=== PATIENT | female | born 1935 | race Two or more races ===

== ENCOUNTER 2018-12-26 10:06 | Day surgery (SDC) | payer MEDICARE, MEDICAID ==
[2018-12-25 09:41] LABS: Basophils # (auto) 0.1 uL; Eosinophils # (auto) 0.2 uL; Eosinophils % (auto) 3.1 % (0.0-7.0); Hematocrit 37.6 % (36.0-46.0); Hemoglobin 12.6 g/dL (12.2-16.2); Lymphocytes # (auto) 1.8 uL; Lymphocytes % (auto) 30.9 % (10.0-50.0); Mean Corpuscular Hemoglobin 32.2 pg (28.0-32.0); Mean Corpuscular Hgb Conc. 33.6 g/dL (32.0-36.0); Mean Corpuscular Volume 95.7 fL (80.0-100.0); Monocytes # (auto) 0.5 uL; Monocytes % (auto) 9.1 % (0.0-12.0); Neutrophils # (auto) 3.3 uL; Neutrophils % (auto) 55.9 % (37.0-80.0); Platelet Count (auto) 250 10^3/uL (140-450); Red Blood Cells 3.93 10^6/uL (4.0-5.20); Red Cell Distribution Width 14.3 % (11.8-14.3); White Blood Cell 5.8 10^3/uL (4.4-10.8)
[2018-12-25 09:43] LABS: Urine Bacteria NONE SEEN /hpf (None Seen); Urine Blood Negative /uL (Negative); Urine Specific Gravity 1.022 (1.001-1.035); Urine WBC 3 /hpf (0 - 5)
[2018-12-25 09:58] LABS: INR 0.94 (0.9-1.15); Partial Thromboplastin Time 25.6 sec (23.64-32.05)
[2018-12-25 10:05] LABS: Potassium 4.1 mmol/L (3.5-5.1)
[2018-12-25 10:13] LABS: Albumin 3.8 g/dL (3.4-5.0); BUN/Creatinine Ratio 37.1; Bilirubin, Total 0.4 mg/dL (0.2-1.0); Calcium 8.5 mg/dL (8.5-10.1); Total Protein 7.7 g/dL (6.4-8.2)
[~2018-12-26] VITALS: Ht 147.3 cm; Wt 58.1 kg
[~2018-12-26 10:06] MED LIST: AML5T PO; LEV50T PO; MAGN400C3 PO
[2018-12-26] MEDS ORDERED: ceFAZolin 1GM/50ML 50 ML IV ONE (11:44)
[2018-12-26] MEDS ORDERED: SODIUM CHLORIDE LOCK 10 ML ONE (12:29)
[2018-12-26] MEDS ORDERED: MIDAZOLAM HCL 1MG/1ML-2 ML VIAL ONE (12:29)
[2018-12-26] MEDS ORDERED: ONDANSETRON HCL 4 MG/2 ML VIAL ONE (12:29)
[2018-12-26] MEDS ORDERED: METOCLOPRAMIDE HCL 5MG/ml INJ 2ml VIAL IV PRN (12:45)
[2018-12-26] MEDS ORDERED: MORPHINE SULFATE 4 MG/ML SYR/VIAL IV PRN (12:45)
[2018-12-26] MEDS ORDERED: HYDROmorphone HCL 2 MG/ML VL IV PRN (12:45)
[2018-12-26] MEDS ORDERED: fentaNYL CITRATE 100 MCG/2 ML VL IV PRN (12:45)
[2018-12-26] MEDS ORDERED: ROPIVACAINE 0.5% (5MG/ML) 20ML AMPULE IJ ONE ×2 (12:49→13:08)
[2018-12-26] MEDS ORDERED: PROPOFOL 10 MG/ML 20 ML IV ONE (12:53)
[2018-12-26] MEDS ORDERED: KETAMINE HCL 1 ML ONE (13:18)
[2018-12-26 14:04] VITALS: BP 153/53
== END 2018-12-26 14:14 | disposition home or self-care (01) ==
LOC: SUR 10:06
PROVIDERS: ATTEND Podiatrist Foot & Ankle Surgery
DX: M20.21 Hallux rigidus, right foot (principal); M20.41 Other hammer toe(s) (acquired), right foot; M25.774 Osteophyte, right foot; M19.071 Primary osteoarthritis, right ankle and foot; I10 Essential (primary) hypertension; J44.9 Chronic obstructive pulmonary disease, unspecified; I25.10 Atherosclerotic heart disease of native coronary artery without angina pectoris; E03.9 Hypothyroidism, unspecified; Z79.899 Other long term (current) drug therapy
CPT/HCPCS: 28285; 28289; 36415; 80053; 81001; 85025; 85610; 85730; 88304; 88311; 93005; J0690; J2250; J2405; J2704; J2795

== ENCOUNTER 2022-02-11 09:38 | Day surgery (SDC) | payer MEDICARE, MEDICAID ==
[2022-02-09 10:42] LABS: Basophils # (auto) 0 10 ^3/uL (0-0.2); Basophils % (auto) 0.5 % (0.0-2.0); Eosinophils # (auto) 0.1 10 ^3/uL (0-0.8); Eosinophils % (auto) 1.5 % (0.0-7.0); Hematocrit 37.5 % (36.0-46.0); Hemoglobin 12.3 g/dL (12.2-16.2); Lymphocytes # (auto) 2.5 10 ^3/uL (0.4-5.4); Mean Corpuscular Hemoglobin 30.9 pg (28.0-32.0); Mean Corpuscular Hgb Conc. 32.9 g/dL (32.0-36.0); Mean Corpuscular Volume 93.9 fL (80.0-100.0); Monocytes # (auto) 0.8 10 ^3/uL (0-1.3); Monocytes % (auto) 9.5 % (0.0-12.0); Neutrophils # (auto) 5.3 10 ^3/uL (1.6-8.6); Neutrophils % (auto) 60.5 % (37.0-80.0); Red Cell Distribution Width 14.5 % (11.8-14.3); White Blood Cell 8.8 10^3/uL (4.4-10.8)
[2022-02-09 11:01] LABS: Albumin 3.7 g/dL (3.4-5.0); Calcium 9.1 mg/dL (8.5-10.1); Potassium 3.8 mmol/L (3.5-5.1)
[2022-02-09 11:04] LABS: BUN/Creatinine Ratio 29.1; Bilirubin, Total 0.4 mg/dL (0.2-1.0); Total Protein 7.5 g/dL (6.4-8.2)
[2022-02-09 11:15] LABS: INR 0.92 (0.9-1.15); Partial Thromboplastin Time 23.1 sec (24.6-33.4)
[~2022-02-11] VITALS: Ht 147.3 cm; Wt 58.1 kg
[~2022-02-11 09:38] MED LIST changes: -AML5T PO; +AMLO-489 PO; +CHOL400C12 PO; +DONE1TAB88 PO; +GABA100C9 PO; +HYDR25TA4 PO; -LEV50T PO; +LEVO88CA3 PO; +LOPE-20 PO; +LORA0.5T20 PO
[2022-02-11] MEDS ORDERED: MIDAZOLAM HCL 2MG/2ML 2ml VIAL (1mg/ml) ONE (09:44)
[2022-02-11] MEDS: diphenhdrAMINE HCL 50 MG/1 ML VL ONE ×2 (10:57→11:10)
[2022-02-11] MEDS: fentaNYL CITRATE 100 MCG/2 ML VL ONE ×3 (10:57→11:10)
[2022-02-11 12:00] VITALS: BP 142/68
== END 2022-02-11 12:20 | disposition home or self-care (01) ==
LOC: GI 09:38
PROVIDERS: ATTEND Internal Medicine Gastroenterology
DX: K52.9 Noninfective gastroenteritis and colitis, unspecified (principal); K57.30 Diverticulosis of large intestine without perforation or abscess without bleeding; K62.1 Rectal polyp; K64.8 Other hemorrhoids; I10 Essential (primary) hypertension; E03.9 Hypothyroidism, unspecified; Z79.899 Other long term (current) drug therapy; Z79.890 Hormone replacement therapy; Z20.822 Contact with and (suspected) exposure to COVID-19; Z98.890 Other specified postprocedural states
CPT/HCPCS: 36415; 45380; 80053; 85025; 85610; 85730; 88305; J1200; J2250; J3010; J7030; U0003; 99152; 99153